=== PATIENT | male | born 1975 | race Caucasian/White ===

== ENCOUNTER 2017-09-11 05:52 | Emergency (ER) | payer OTHER ==
[~2017-09-11] VITALS: Ht 182.9 cm; Wt 90.6 kg
[2017-09-11 05:58] VITALS: BP 156/95; PULSE 70; RESP 14; TEMP 98.5; O2SAT 98
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
[2017-09-11] MEDS ORDERED: oxyCODONE/ACETAMINOPHEN 5 MG/325 MG TAB PO ONE (06:15)
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
--- NOTE | 2017-09-11 06:54 | RADRPT ---
EXAM DATE: 09/11/2017 6:51 AM EDT AGE/SEX: 41 years / Male INDICATIONS: Right shoulder pain. CLINICAL DATA: This is the patient's initial encounter. Patient reports that signs and symptoms have been present for 2 days and indicates a pain score of 10/10. MEDICAL/SURGICAL HISTORY: None. None. COMPARISON: No prior exams available for comparison. FINDINGS: Bony structures are intact and in normal alignment. Joints are intact without dislocation or signifi cant arthropathy. Osseous density is normal. Soft tissues are unremarkable. No radiopaque foreign bodies seen. CONCLUSION: Examination within normal limits. Electronically signed by: Ole Gallardo MD 09/11/2017 6:53 AM EDT
[2017-09-11] MEDS ORDERED: DEXAMETHASONE SOD PHOS 20 MG/5 ML VIAL IM ONE (07:00)
[2017-09-11] MEDS ORDERED: PRED50 PO (07:06)
[2017-09-11] MEDS ORDERED: DIAZ5 PO (07:06)
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
== END 2017-09-11 07:36 | disposition home or self-care (01) ==
LOC: PHED 05:52
DX: M54.12 Radiculopathy, cervical region (principal); S06.0X0A Concussion without loss of consciousness, initial encounter; M54.2 Cervicalgia; Y04.0XXA Assault by unarmed brawl or fight, initial encounter; Y99.0 Civilian activity done for income or pay
CPT/HCPCS: 70450; 72125; 73030; 96372; 99284; J1100